=== PATIENT | female | born 1985 ===

== ENCOUNTER → 2022-01-19 15:11 | Outpatient (BNVA) | payer OTHER, SELFPAY | PROVIDERS: PCP Counselor Addiction (Substance Use Disorder); Visit Provider Psychiatry & Neurology Neurology | DX: R51.9 Headache, unspecified (principal); M54.2 Cervicalgia; G89.29 Other chronic pain | CPT/HCPCS: 99202 ==

== ENCOUNTER → 2022-03-30 13:58 | Outpatient (BNVA) | payer OTHER, SELFPAY | PROVIDERS: Visit Provider Nurse Practitioner Family | DX: M54.2 Cervicalgia (principal); R51.9 Headache, unspecified; G89.29 Other chronic pain | CPT/HCPCS: 99212 ==